=== PATIENT | female | born 1975 | race Caucasian/White ===

== ENCOUNTER 2016-09-26 23:17 | Emergency (ER) ==
--- NOTE | 2016-09-27 00:08 | PROVIDER DOCUMENTATION ---
HPI-Respiratory General - General Source: patient - History of Present Illness-Resp Quality of Pain: reports: sharp Severity in ED: reports: mild Onset/Duration: reports: other (3 months) Timing: reports: getting worse Cough Quality/Degree: reports: moderate, productive cough, sputum Current Respiratory Medication Therapy: Initiated see nurses note Modifying Factors: worse with: coughing, other (movement) Associated Symptoms: reports: cough Similar Symptoms Previously?: Yes Recently seen or treated by another doctor?: No <Domitila Velasquez - Last Filed: 09/27/16 00:09> <Ollie Parker - Last Filed: 09/27/16 00:55> - General Chief Complaint: Cough Stated Complaint: COUGH Time Seen by Provider: 09/26/16 23:51 Allergies/Adverse Reactions: Patient Allergies Allergy/AdvReac Type Severity Reaction Status Date / Time No Known Allergies Allergy Verified 09/26/16 23:55 - History of Present Illness-Resp Nature of Presenting Problem: 41 year old F presents to the ED with a cc of a cough x3 months. Pt states that now she is having pain in left ribs and back. PT states that she is also coughing up green phlegm. (Domitila Velasquez) Review of Systems - Adult - REVIEW OF SYSTEMS - ADULT Constitutional: denies: chills, fever Eyes: reports: no symptoms reported Ears, Nose, Mouth & Throat: denies: ear pain, throat pain Cardiovascular: denies: chest pain, palpitations Respiratory: reports: cough. denies: shortness of breath Gastrointestinal: reports: no symptoms reported Genitourinary: reports: no symptoms reported Musculoskeletal: reports: bone pain, back pain Integumentary: reports: no symptoms reported Neurological: reports: no symptoms reported Psychiatric: reports: no symptoms reported Endocrine: reports: no symptoms reported Hematologic/Lymphatic: reports: no symptoms reported Allergic/Immunologic: reports: no symptoms reported All Other Systems: Reviewed and Negative <Domitila Velasquez - Last Filed: 09/27/16 00:09> Past History - Adult - PAST MEDICAL HISTORY-ADULT Review of Records: reports: Nursing Assessment Review, Medications Reviewed Major Childhood Illnesses: reports: denies history Respiratory: reports: bronchitis - PRIOR SURGERIES/PROCEDURES Surgical/Procedure History: reports: BTL, breast - IMMUNIZATION STATUS Childhood Immunizations: See Nurse Assessment Flu Vaccine: See Nurse Assessment - SOCIAL HISTORY Smoking: cigarettes, less than 1 pack/day Provider spent 3-5 mins advising pt. on dangers of tobacco.: Discussed manners to quit use, and f/u contacts for add'l counseling. Substance Use: none/never Alcohol Use Frequency: never <Domitila Velasquez - Last Filed: 09/27/16 00:09> Physical Exam-General - PHYSICAL EXAM-ADULT Initial Vital Signs Reviewed: Yes - CONSTITUTIONAL General Appearance: appears well, alert, no apparent distress - RESPIRATORY Respiratory: chest non-tender, lungs clear, normal breath sounds - CARDIOVASCULAR Cardiovascular: normal peripheral pulses, regular rate, rhythm, no edema - GASTROINTESTINAL (ABDOMEN) Abdominal Exam: non tender, soft - MUSCULOSKELETAL Extremity: normal inspection - SKIN Integumentary: normal color, normal turgor, warm/dry - PSYCHIATRIC Psych/Mental Status: normal mood/affect, normal thought content, normal thought process, oriented x 3 <Domitila Velasquez - Last Filed: 09/27/16 00:09> Progress - XRAY 1 XRAY Study: Chest (nad) <Ollie Parker - Last Filed: 09/27/16 00:55> Departure <Domitila Velasquez - Last Filed: 09/27/16 00:09> - Departure Time of Disposition Order: 00:55 Certified Medical Emergency: Emergent <Ollie Parker - Last Filed: 09/27/16 00:55> - Departure DIAGNOSIS: Bronchitis Disposition: HOME 01 Condition: Stable Additional Instructions: stop smoking, followup with primary care doctor, take medication as prescribed Prescriptions: Benzonatate [Tessalon Perle] 100 mg PO TID PRN #21 capsule PRN Reason: Cough Albuterol Sulfate Inhaler [Ventolin Hfa] 18 gm IH Q6HR PRN #1 inhaler PRN Reason: Shortness Of Breath Azithromycin [Zithromax Z-Jerry] 250 mg PO DIRECTED #1 pkg Referrals: Yash Estevez MD [Primary Care Provider] - Attestation - Scribe Verification/Attestation Scribe:: Domitila Velasquez Acting as Scribe for:: Ollie Parker Scribe documention review:: This chart was documented by a scribe and accurately reflects the service the provider performed and the decisions made by the provider. <Domitila Velasquez - Last Filed: 09/27/16 00:09> Physician Attestation - Physician Attestation I, the provider, attest to the following statement:: Ollie Parker Physician documentation Attestation:: This documentation recorded by the scribe accurately reflects the service I personally performed and the decisions made by me. <Domitila Velasquez - Last Filed: 09/27/16 00:09>
[2016-09-27] MEDS ORDERED: TESSALON PO ONE (00:55)
[2016-09-27 01:13] VITALS: BP 111/76
--- NOTE | 2016-09-27 08:51 | Diag Imaging Result Document ---
PROCEDURE NAME: CHEST-2 VIEWS - 09/27/2016 FRONTAL AND LATERAL CHEST, TWO VIEWS: COMPARISON: 08/21/2016. FINDINGS: The lungs are well expanded. The heart is not enlarged. The vessels are not distended. There are no infiltrates. No pleural effusions. The patient has bilateral breast implants. IMPRESSION: No pneumonia.
== END 2016-09-27 01:18 | disposition home or self-care (01) ==
LOC: P.ED 23:17
DX: J40 Bronchitis, not specified as acute or chronic (principal); R05 Cough; R07.81 Pleurodynia; M54.9 Dorsalgia, unspecified; F17.210 Nicotine dependence, cigarettes, uncomplicated; Z71.6 Tobacco abuse counseling
CPT/HCPCS: 71020; 99283